=== PATIENT | male | born 1940 | race Caucasian/White ===

== ENCOUNTER 2022-05-18 17:01 | Inpatient (IN) | payer MEDICARE, SELFPAY ==
--- NOTE | 2022-05-18 17:06 | PC.NURSE ---
patient arrived by stretcher from [facility]
--- NOTE | 2022-05-18 17:07 | PC.NURSE ---
Pt arrived to floor @ 1703 via EMS.
[2022-05-18 17:13] VITALS: BP 126/59; PULSE 42; RESP 16; TEMP 36.4; O2SAT 93; BMI 31.6
[2022-05-18 17:15] VITALS: PULSE 73
[2022-05-18 20:00] VITALS: BP 106/54; PULSE 38; PULSE 40; RESP 16; TEMP 36.5; O2SAT 95
--- NOTE | 2022-05-18 20:35 | PC.NURSE ---
Did med req from list from [facility]. Called and spoke with Dr. Mcneil licensed tax consultant for Dr. Stone when pt arrived and he reordered protonix gtt, prn tylenol, and to make pt NPO. ED also notified to make Dr. Stone aware of pt's arrival and need for further orders, addison was going to make him aware. Bed safety on. CB in reach. Pt was sinus kuldip on tele upon admission. BP stable.
[2022-05-18 22:24] LABS: Coronavirus 19, PCR Not Detected (NotDetected); Influenza A, PCR Not Detected (NotDetected); Influenza B, PCR Not Detected (NotDetected)
[2022-05-19] VITALS (9 sets, daily range): BP systolic 96–136; BP diastolic 59–77; PULSE 40–55; RESP 16–22; TEMP 36.4–36.8; O2SAT 93–97; BMI 31.3
--- NOTE | 2022-05-19 06:31 | PC.NURSE ---
Pt AOx4. No c/o voiced to staff. Pt HR has been 32-50 t/o shift. Pt remains asymptomatic. Call light within reach.
[2022-05-19 06:58] LABS: POC Glucose,Bedside 93 (70-110)
--- NOTE | 2022-05-19 07:30 | EXP.PHA.VTE ---
[facility] Pharmacy VTE Monitoring Patient Demographics Patient Allergies No Known Allergies Allergy (Verified 05/18/22 19:53) Height: 1.8 m Weight: 101.469 kg VTE Risk VTE Score: 3 VTE Risk Level: Low Risk Clinical Trial Participant: No Prophylaxis VTE Prophylaxis Ordered?: Yes Types of VTE Prophylaxis: TEDS Knee High
[2022-05-19 09:32] LABS: Basophils % 0.2 % (0.1-2.0); Eosinophils # 0.3 K/mm3 (0.0-0.4); Eosinophils % 4.7 % (0.1-12.0); Hematocrit 28.2 % (42.0-52.0); Hemoglobin 8.7 g/dL (14.1-18.0); Lymphocytes # 1.9 K/mm3 (0.7-4.5); Lymphocytes % 30.7 % (10-50); Mean Corpuscular HGB Conc 30.7 g/dL (31.8-35.4); Mean Corpuscular Hemoglobin 26.2 pg (27.0-31.2); Mean Corpuscular Volume 85.4 fl (80-94); Mean Platelet Volume 8.1 fl (7.4-10.4); Monocytes # 0.4 K/mm3 (0.1-1.0); Monocytes % 5.8 % (1.7-9.3); Neutrophils # 3.6 K/mm3 (1.8-7.8); Neutrophils % 58.7 % (37.0-80.0); Platelet Count 235 K/mm3 (142-424); White Blood Count 6.1 K/mm3 (4.8-10.8)
--- NOTE | 2022-05-19 10:15 | PC.NURSE ---
Rounded on pt, cleaned and straightened lillie. Pt is npo for possible procedure. No needs voiced at this time.
--- NOTE | 2022-05-19 10:50 | EXP.CARD.CON ---
History of Present Illness History of Present Illness Consult date: 05/19/22 Requesting physician: José Miguel Hines Consult reason: shortness of breath Chief complaint: weakness, SOA, diaphoresis History of present illness: This is a 81-year-old gentleman who presented to the emergency department at [facility] with complaints of weakness, shortness of breath and diaphoresis. The patient states that he was not feeling well and went into the emergency department. He was found to be in a junctional rhythm with a heart rate in the 40s. Dr. Palacio was contacted and the patient was transferred here to [facility]. This morning he states he is feeling much better and really denies any complaints of weakness shortness of breath or diaphoresis. However, he has not been able to get up out of the bed due to his bradycardia. His heart rate was anywhere from 30 bpm to 50s overnight last night. He denies any chest pain or pressure. He denies any fever, chills, nausea, vomiting, diarrhea, PND or orthopnea. The patient does report having some blood in his stool for the last month as well. He is also anemic with a hemoglobin of 8.7. He has had no work-up for this blood in his stool. He does have a history of paroxysmal atrial fibrillation and he is on Xarelto for anticoagulation which is currently being held. The patient does have a history of renal cell carcinoma with right nephrectomy approximately a year ago with no history of chemo or radiation. Review of Systems Review of Systems Review of systems:: pertinent systems reviewed and negative unless documented below Constitutional Constitutional: Reports system reviewed and no additional complaints, except as documented, Reports fatigue, Reports lethargy and Reports weakness Eyes Eyes: Reports system reviewed and no additional complaints, except as documented ENT Ears, Nose, Mouth, and Throat: Reports system reviewed and no additional complaints, except as documented *Cardiovascular Cardiovascular: Reports system reviewed and no additional complaints, except as documented, Denies chest pain, Reports diaphoresis, Reports dyspnea and Reports dyspnea on exertion *Respiratory Respiratory: Reports system reviewed and no additional complaints, except as documented, Reports dyspnea and Reports dyspnea on exertion *Gastrointestinal Gastrointestinal: Reports system reviewed and no additional complaints, except as documented and Reports change in stool character (Blood in stool) *Genitourinary Genitourinary: Reports system reviewed and no additional complaints, except as documented *Musculoskeletal Musculoskeletal: Reports system reviewed and no additional complaints, except as documented Integumentary/Breasts Skin/Breast: Reports system reviewed and no additional complaints, except as documented *Neurologic Neurologic: Reports system reviewed and no additional complaints, except as documented and Reports weakness Psychiatric Psychiatric: Reports system reviewed and no additional complaints, except as documented Endocrine Endocrine: Reports system reviewed and no additional complaints, except as documented and Reports fatigue Hematologic/Lymphatic Hematologic/Lymphatic: Reports system reviewed and no additional complaints, except as documented Allergic/Immunologic Allergic/Immunologic: Reports system reviewed and no additional complaints, except as documented Exam Data for Last 24 hours Vital signs and Labs for Last 24 Hours: Temp Pulse Resp BP Pulse Ox 98.2 F 55 L 16 114/61 95 05/19/22 08:00 05/19/22 08:00 05/19/22 08:00 05/19/22 08:00 05/19/22 08:00 Laboratory Results - last 24 hr 05/18/22 22:12: SARS-CoV-2 (PCR) Not detected, Influenza A Untype (PCR) Not detected, Influenza Type B (PCR) Not detected 05/19/22 06:24: POC Glucose 93 05/19/22 09:15: WBC 6.1, RBC 3.30 L, Hgb 8.7 L, Hct 28.2 L, MCV 85.4, MCH 26.2 L, MCHC 30.7 L, RDW 17.0, Plt Count 235, MPV 8.1, Neut % (Auto) 58.7
[2022-05-19 11:27] LABS: POC Glucose,Bedside 115 (70-110)
--- NOTE | 2022-05-19 11:50 | EXP.SURG.CON ---
History of Present Illness *Admission Date: 05/19/22 *Reason for consult:: GI blood loss for 1 month *History of present illness: Patient is a 81-year-old who had presented to [facility] complaints of weakness, shortness of breath, diaphoresis. He stated that he was not feeling well upon presentation to the emergency department. He was noted to have a junctional rhythm with a heart rate in the 40s. Dr. Palacio was contacted and the patient was therefore transferred and admitted to [facility]. Patient has been weak and unable to get out of bed due to his bradycardia. Patient has some anemia with a hemoglobin of 8.7. He reported some blood in his stool for the past month characterized as dark melenic stool. Patient is on Xarelto for history of paroxysmal atrial fibrillation. Of note, the patient has a history of renal cell carcinoma has previous right nephrectomy approximately a year ago. Surgical consultation was obtained. His primary care provider is Dr. Acevedo. Patient has never had prior colonoscopy. No history of ulcer disease. Previously refused colonoscopy. [facility] Medical History (Updated 05/19/22 @ 10:56 by Lauren Urrutia APRN) Atrial fibrillation Cancer of kidney Cholecystectomy planned Diabetes mellitus, type 2 Gallbladder disease Hernia Hypertension Review of Systems Constitutional Constitutional: Reports weakness *Neurologic Neurologic: Reports system reviewed and no additional complaints, except as documented and Reports weakness Meds Home Medications and Allergies Home Medications Medication Instructions Recorded Confirmed Type allopurinol 100 mg tablet 100 mg PO DAILY gout 05/18/22 05/18/22 History amlodipine 5 mg tablet 5 mg PO DAILY blood pressure 05/18/22 05/18/22 History carvedilol 6.25 mg tablet 6.25 mg PO BID blood pressure 05/18/22 05/18/22 History cholecalciferol (vitamin D3) 25 25 mcg PO DAILY supplement 05/18/22 05/18/22 History mcg (1,000 unit) tablet (Vitamin D3) glimepiride 4 mg tablet 4 mg PO DAILY Diabetes 05/18/22 05/18/22 History lisinopril 20 mg tablet 20 mg PO DAILY blood pressure 05/18/22 05/18/22 History metformin 500 mg tablet 500 mg PO DAILY diabetes 05/18/22 05/18/22 History rivaroxaban 20 mg tablet (Xarelto) 20 mg PO QPMWITHMEAL Blood thinner 05/18/22 05/19/22 History simvastatin 20 mg tablet 20 mg PO HS Cholesterol 05/18/22 05/19/22 History tamsulosin 0.4 mg capsule 0.4 mg PO HS prostate 05/18/22 05/19/22 History New Prescriptions to Start Prescriptions: Allergies Allergy/AdvReac Type Severity Reaction Status Date / Time No Known Allergies Allergy Verified 05/18/22 19:53 Exam (Inpt) Vital signs and Labs for Last 24 Hours: Temp Pulse Resp BP Pulse Ox 98.1 F 50 L 17 126/73 97 05/19/22 11:13 05/19/22 11:13 05/19/22 11:13 05/19/22 11:13 05/19/22 11:13 Laboratory Results - last 24 hr 05/18/22 22:12: SARS-CoV-2 (PCR) Not detected, Influenza A Untype (PCR) Not detected, Influenza Type B (PCR) Not detected 05/19/22 06:24: POC Glucose 93 05/19/22 09:15: WBC 6.1, RBC 3.30 L, Hgb 8.7 L, Hct 28.2 L, MCV 85.4, MCH 26.2 L, MCHC 30.7 L, RDW 17.0, Plt Count 235, MPV 8.1, Neut % (Auto) 58.7, Lymph % (Auto) 30.7, [place] % (Auto) 5.8, Eos % (Auto) 4.7, Baso % (Auto) 0.2, Neut # (Auto) 3.6, Lymph # (Auto) 1.9, [place] # (Auto) 0.4, Eos # (Auto) 0.3, Baso # (Auto) 0.0 05/19/22 11:11: POC Glucose 115 H I & O for Labs for Last 24 Hours: Intake & Output 05/16/22 05/17/22 05/18/22 05/19/22 11:59 11:59 11:59 11:59 Intake Total 122 / 122 Output Total 2024 Balance -1903 / -1902 Weight 223 lb 11.2 oz GI: soft and tenderness Results Labs Result Diagrams: 05/19/22 09:15 05/19/22 09:15 Labs: Abnormal lab results 05/19/22 05/19/22 Range/Units 09:15 11:11 RBC 3.30 L (4.60-6.20) M/mm3 Hgb 8.7 L (14.1-18.0) g/dL Hct 28.2 L (42.0-52.0) % MCH 26.2 L
[2022-05-19 12:02] LABS: Anion Gap 12.4 mEq/L (5-15); Blood Urea Nitrogen 31 mg/dl (9-20); Calcium 9.1 mg/dl (8.4-10.2); Carbon Dioxide 22 mmol/L (22.0-30.0); Chloride 110 mmol/L (98-107); Creatinine Clearance Estimated 61 mL/min (50-200); Estimated Glomerular Filt Rate 49 ml/min (>60); GFR (African American) 59 ML/MIN (>60); Glucose 117 mg/dl (74-100); Potassium 5.4 mmoL/L (3.5-5.1); Sodium 139 mmol/L (136-145)
--- NOTE | 2022-05-19 12:12 | ECG_ITS ---
APPROVED REPORT Exam: Resting ECG HR:50 bpm ECG Measurements Heart Rate 50 AXES AR 235 P 47 QRSd 101 QRS 59 QT 450 T 70 QTc 424 Conclusion SINUS BRADYCARDIA WITH FIRST DEGREE AV BLOCK ABNORMAL ECG UNCONFIRMED REPORT Electronically signed by : Jim Mcneil MD 05/21/2022 08:07:44
[2022-05-19 12:14] LABS: Troponin I < 0.01 ng/ml (0.00-0.034)
--- NOTE | 2022-05-19 12:48 | EXP.HP ---
History of Present Illness *Admission Date: 05/19/22 *History of present illness: Patient is a 81-year-old who had presented to [facility] complaints of weakness, shortness of breath, diaphoresis. He stated that he was not feeling well upon presentation to the emergency department. He was noted to have a junctional rhythm with a heart rate in the 40s. Dr. Palacio was contacted and the patient was therefore transferred and admitted to [facility]. Patient has been weak and unable to get out of bed due to his bradycardia. Patient has some anemia with a hemoglobin of 8.7. He reported some blood in his stool for the past month. Patient is on Xarelto for history of paroxysmal atrial fibrillation. Of note, the patient has a history of renal cell carcinoma has previous right nephrectomy approximately a year ago. Surgical consultation was obtained. [facility] Medical History (Updated 05/20/22 @ 10:21 by Lauren Urrutia APRN) Atrial fibrillation Cancer of kidney Cholecystectomy planned Diabetes mellitus, type 2 Gallbladder disease Hernia Hypertension Social History (Updated 05/20/22 @ 08:59 by Earl Camilo CRNA) Smoking Status: Never smoker alcohol intake: current substance use type: denies use current occupational status: employed Travel in the last 8 weeks: Inside the [place] Review of Systems Constitutional Constitutional: Reports weakness Eyes Eyes: Denies change in vision ENT Ears, Nose, Mouth, and Throat: Reports system reviewed and no additional complaints, except as documented *Cardiovascular Cardiovascular: Reports system reviewed and no additional complaints, except as documented, Reports irregular heart rhythm, Reports lightheadedness and Reports slow heart rate *Respiratory Respiratory: Reports system reviewed and no additional complaints, except as documented *Gastrointestinal Gastrointestinal: Denies abdominal pain *Genitourinary Genitourinary: Reports system reviewed and no additional complaints, except as documented *Musculoskeletal Musculoskeletal: Reports system reviewed and no additional complaints, except as documented Integumentary/Breasts Skin/Breast: Reports system reviewed and no additional complaints, except as documented *Neurologic Neurologic: Reports system reviewed and no additional complaints, except as documented and Reports weakness Psychiatric Psychiatric: Reports system reviewed and no additional complaints, except as documented Endocrine Endocrine: Reports system reviewed and no additional complaints, except as documented Hematologic/Lymphatic Hematologic/Lymphatic: Reports system reviewed and no additional complaints, except as documented Allergic/Immunologic Allergic/Immunologic: Reports system reviewed and no additional complaints, except as documented Meds Home Medications and Allergies Home Medications Medication Instructions Recorded Confirmed Type allopurinol 100 mg tablet 100 mg PO DAILY gout 05/18/22 05/18/22 History amlodipine 5 mg tablet 5 mg PO DAILY blood pressure 05/18/22 05/18/22 History carvedilol 6.25 mg tablet 6.25 mg PO BID blood pressure 05/18/22 05/18/22 History cholecalciferol (vitamin D3) 25 25 mcg PO DAILY supplement 05/18/22 05/18/22 History mcg (1,000 unit) tablet (Vitamin D3) glimepiride 4 mg tablet 4 mg PO DAILY Diabetes 05/18/22 05/18/22 History lisinopril 20 mg tablet 20 mg PO DAILY blood pressure 05/18/22 05/18/22 History metformin 500 mg tablet 500 mg PO DAILY diabetes 05/18/22 05/18/22 History rivaroxaban 20 mg tablet (Xarelto) 20 mg PO QPMWITHMEAL Blood thinner 05/18/22 05/19/22 History simvastatin 20 mg tablet 20 mg PO HS Cholesterol 05/18/22 05/19/22 History tamsulosin 0.4 mg capsule 0.4 mg PO HS prostate 05/18/22 05/19/22 History New Prescriptions to Start Prescriptions: Allergies Allergy/AdvReac Type Severity Reaction Status Date / Time No Known Allergies Allergy Verified 05/18/22 19:53
--- NOTE | 2022-05-19 13:44 | PC.NURSE ---
patient sitting up in bed. stated he just finished his clear liquid tray for lunch. no concerns or questions in regards to plan of care or planned procedures. did encourage patient to ring out for assistance to the bathroom and we would be happy to help him. he had some worries about walking ot the bathroom once his bowel prep was started.
[2022-05-19 16:53] LABS: POC Glucose,Bedside 122 (70-110)
--- NOTE | 2022-05-19 18:35 | PC.NURSE ---
Patient scheduled for egd, colonoscopy and pacemaker in am. Bowel Prep started after clear liquid diet initiated. Patient having formed medium colored brown stool. VS stable and heart rate in 50's during shift. No other complaints noted.
[2022-05-19 19:57] LABS: POC Glucose,Bedside 121 (70-110)
--- NOTE | 2022-05-19 20:38 | PC.NURSE ---
pt used the bathroom by himself, NA on urine output.
[2022-05-20] VITALS (11 sets, daily range): BP systolic 95–138; BP diastolic 60–75; PULSE 50–70; RESP 16–20; TEMP 35.8–36.5; O2SAT 89–98; BMI 29.7
--- NOTE | 2022-05-20 | IR_ITS ---
APPROVED REPORT Patient Location: Outpatient Panelboard Assembler: BILL Olivares RT (R) PROCEDURES 1. Pocket formation for Permanent Pacemaker Placement. 2. Placement of an atrial sensing and pacing coil into the right atrial appendage. 3. Placement of a ventricular sensing and pacing coil in the right ventricular apex. 4. Permanent Pacemaker Placement. INDICATION Symptomatic bradycardia Informed consent was obtained prior to the procedure. COMPLICATIONS None Estimated Blood Loss: Less than 10 ML TECHNIQUE 1% Lidocaine with epinephrine used to anesthetized the left anterior aspect of the chest. Scalpel was used to make the initial cutaneous incision while electrocautery was used to dissect down tinto the fascia. The fascia was lifted off the pectoralis muscle and digitally manipulated creating a pocket for the pacemaker. The patient was then placed in Trendelenburg position and the subclavian vein was accessed twice via the Selinger technique, there are two wires in the vein. A 6 Iraqi sheath was placed under fluoroscopic guidance into the subclavian vein over one of the wires while keeping the other wire in place within the subclavian vein. The dilator was removed from the sheath. Using fluoroscopic guidance, the ventricular lead was placed into the right ventricular apex, screwed and secured into place. Electronic interrogation proved acceptable thresholds and voltage within the lead. Using 3-0 silk, the ventricular lead was then secured into place. Lead was secured to the facia using the 3-0 silk. Following this, the sheath was pealed away. An additional 6 Iraqi fresh sheath and dilator was placed over the existing wire. Using fluoroscopic guidance, the atrial lead was the placed into the right atrial appendage and screwed and secured in place. Electrical interrogation demonstrated acceptable thresholds and voltage number. The atrial lead was then secured into place using 3-0 silk. 1 gram of Ancef was used to flush the pocket. Following the pacemaker generator being secured to the fascia and in place, Monocryl was used to close the subcutaneous layers while reg were used to close the cutaneous layer. A pressure dressing was placed and the patient was transferred to the postop holding area in stable condition for postoperative care. INTERROGATION Generator Model number: OnePINBAZAN DR, L311 Generator Serial number: [id number] Atrial lead model number: INGEVITY+ 52CM, 7841 Atrial lead serial number: [id number] P-wave: 4.0mV Impedence: 527 ohms Threshold: 1.5V@0.4ms Current: 2.8mA Right Ventricular lead model number: ZOË+ 59CM, 7842 Right Ventricular lead serial number: [id number] R-wave: 4.0mV Impedence: 665 ohms Threshold: 0.4V@0.4ms Current: 0.6mA Pacing Parameters: Mode: DDDR Base/Max Track:60 ppm / 130 ppm No diaphragmatic stimulation at 10 volts. IMPRESSION 1. Successful pocket formation for Permanent Pacemaker Placement. 2. Successful placement of an atrial sensing and pacing coil into the right atrial appendage. 3. Successful placement of a ventricular sensing and pacing coil in the right ventricular apex. 4. Successful permanent Pacemaker Placement. PLAN 1. Postop wound care. Follow up office visit. Electronically signed by : Ion Palacio MD 05/20/2022 13:02:32
--- NOTE | 2022-05-20 05:24 | PC.NURSE ---
Patient a&ox4. Patient ambulates independently to the restroom. Patient scheduled for egd, colonoscopy, and pacemaker this am. Patient having water brownish colored stools after bowl prep. Heart rate has been in the 50's throughout night. Patient bathed and ready for OR this AM no concerns noted.
[2022-05-20 05:58] LABS: POC Glucose,Bedside 101 (70-110)
--- NOTE | 2022-05-20 06:18 | PC.NURSE ---
Patient off floor with pre op nurse.
--- NOTE | 2022-05-20 06:19 | PC.NURSE ---
PT OFF FLOOR VIA BED W/ OR STAFF @ [id number]
[2022-05-20 06:33] LABS: Basophils % 0.4 % (0.1-2.0); Eosinophils # 0.3 K/mm3 (0.0-0.4); Eosinophils % 4.5 % (0.1-12.0); Hematocrit 28.6 % (42.0-52.0); Hemoglobin 8.7 g/dL (14.1-18.0); Lymphocytes # 1.7 K/mm3 (0.7-4.5); Mean Corpuscular HGB Conc 30.2 g/dL (31.8-35.4); Mean Corpuscular Hemoglobin 26.1 pg (27.0-31.2); Mean Corpuscular Volume 86.4 fl (80-94); Mean Platelet Volume 8.6 fl (7.4-10.4); Monocytes # 0.4 K/mm3 (0.1-1.0); Monocytes % 7.3 % (1.7-9.3); Neutrophils # 3.3 K/mm3 (1.8-7.8); Neutrophils % 57.9 % (37.0-80.0); Platelet Count 237 K/mm3 (142-424); Red Blood Count 3.32 M/mm3 (4.60-6.20); Red Cell Distribution Width 17.2 % (11.5-17.5); White Blood Count 5.7 K/mm3 (4.8-10.8)
[2022-05-20 07:20] LABS: Alanine Aminotransferase 28 U/L (12-78); Albumin Level 3.7 g/dl (3.5-5.0); Alkaline Phosphatase 72 U/L (38-126); Anion Gap 13.6 mEq/L (5-15); Aspartate Amino Transferase 28 U/L (17-59); Bilirubin,Direct 0.3 mg/dl (0.0-0.4); Bilirubin,Total 1.3 mg/dl (0.2-1.3); Blood Urea Nitrogen 22 mg/dl (9-20); Calcium 8.7 mg/dl (8.4-10.2); Carbon Dioxide 24 mmol/L (22.0-30.0); Chloride 109 mmol/L (98-107); Chol/HDL Ratio 2.6 (1-3.5); Cholesterol 81 mg/dl (140-200); Creatinine Clearance Estimated 54 mL/min (50-200); Estimated Glomerular Filt Rate 45 ml/min (>60); GFR (African American) 55 ML/MIN (>60); Glucose 99 mg/dl (74-100); HDL Cholesterol 31 mg/dl (40-60); Potassium 4.6 mmoL/L (3.5-5.1); Sodium 142 mmol/L (136-145); Total Protein,Serum 6.3 g/dl (6.3-8.2); Triglycerides 94 mg/dl (30-150); VLDL Cholesterol 19 mg/dL (0-40)
--- NOTE | 2022-05-20 07:44 | HMH.SCOPE ---
Procedure: Date: 05/20/22 Patient Date of :: 1940 Procedure Performed:: Esophagogastroduodenoscopy with biopsy Colonoscopy Indications:: Patient is a 81-year-old male who was admitted with symptomatic bradycardia. Consideration is being given for transvenous pacemaker. However, patient gives history of melena and anemia. Surgery was asked to perform endoscopy and colonoscopy to evaluate for any potential GI blood loss source. Performing Provider:: Didier Cordova MD Referring Provider:: Candido Acevedo Sedation:: MAC sedation Procedure:: Patient was taken to endoscopy procedure room. He was positioned in lateral decubitus position. Adequate intravenous sedation was achieved. Attention was first turned to upper endoscopy. Olympus endoscope was inserted via the oropharynx. Esophagus was cannulated. Overall esophagus appeared unremarkable. Gastroesophageal junction was encountered at approximately 45 cm from the incisors. Stomach was cannulated and insufflated. Retroflexion revealed a small hiatal hernia. There is some diffuse gastropathy, nonerosive. Pylorus was traversed. There was some focal duodenitis within the duodenal bulb which was biopsied. Remainder of the duodenum appeared unremarkable. Endoscope was withdrawn into the antrum and gastric antral mucosal biopsy was obtained for histopathologic analysis and H. pylori assessment. Given the fact that the patient has impending need for anticoagulation Hemoclip was deployed to ensure hemostasis. Stomach was desufflated and endoscope was withdrawn. Attention was then turned to colonoscopy. Variable stiffness Olympus colonoscope was inserted via the anus. With some difficulty due to significant redundancy and atonic nature of the sigmoid colon the colonoscope was ultimately advanced to the cecum. Ileocecal valve and appendiceal orifice were identified. Colonic preparation was fair to good. Decent visualization was achieved with thorough irrigation and suctioning. Colonoscope was slowly withdrawn through the colon with careful surveillance. There was no evidence of any polyps, masses, or diverticuli noted. Retroflexion within the rectum was performed which revealed some minor nonbleeding internal hemorrhoids. Colonoscope was withdrawn. Findings:: Gastroesophageal junction at 45 cm Small sliding hiatal hernia Diffuse gastropathy Mild duodenitis focally in the duodenal bulb Somewhat atonic redundant colon Recommendations:: May require small bowel evaluation as an outpatient for completeness for his anemia. May consider repeat colonoscopy in 5 years given the fact that this was initial screening colonoscopy and colonic preparation was slightly suboptimal. Complications:: Not immediately apparent Estimated blood obtained (mL): 2
--- NOTE | 2022-05-20 08:12 | PC.NURSE ---
Pt returned from OPS for EGD/colonoscopy, report received from CHANTAL Dang from OPS. Condition stable, pt is alert and verbal with clear speech, oriented x 4. Family at bedside.
--- NOTE | 2022-05-20 08:55 | PC.NURSE ---
Pt left floor for pacemaker placement via stretcher accompanied by 2 staff members. Condition stable at this time.
--- NOTE | 2022-05-20 08:55 | P.PN_ITS ---
[facility] Medical History (Updated 05/19/22 @ 13:13 by Lauren Urrutia APRN) Atrial fibrillation Cancer of kidney Cholecystectomy planned Diabetes mellitus, type 2 Gallbladder disease Hernia Hypertension Social History Smoking Status: Never smoker alcohol intake: current substance use type: denies use current occupational status: employed
--- NOTE | 2022-05-20 09:09 | XR_ITS ---
FINAL REPORT CLINICAL HISTORY: Confirm pacemaker/AID placement FINDINGS: There is a new left subclavian AICD pacemaker. The heart size is mildly enlarged. The mediastinum is normal. There are chronic changes in bilateral lungs. There are no pleural effusions. There is no pneumothorax. There is no osseous abnormality. IMPRESSION: No acute cardiopulmonary process. New left subclavian AICD pacemaker. No pneumothorax Reviewed, Interpreted and Dictated by Martin De Oliveira MD Transcribed by Bisi Vaughan Authenticated and [facility]
--- NOTE | 2022-05-20 09:49 | P.PN_ITS ---
[facility] Medical History (Updated 05/19/22 @ 13:13 by Lauren Urrutia APRN) Atrial fibrillation Cancer of kidney Cholecystectomy planned Diabetes mellitus, type 2 Gallbladder disease Hernia Hypertension Social History (Updated 05/20/22 @ 08:59 by Earl Camilo CRNA) Smoking Status: Never smoker alcohol intake: current substance use type: denies use current occupational status: employed Travel in the last 8 weeks: Inside the [facility]
--- NOTE | 2022-05-20 09:52 | EXP.ACUTE.PN ---
Subjective *Date: 05/20/22 *Time: 14:21 Interval history: doing ok - had gi procedures today and to have pacemaker placed today Medical Exam Vital signs and Labs for Last 24 Hours: Temp Pulse Resp BP Pulse Ox 96.5 F L 64 18 138/65 89 L 05/20/22 08:00 05/20/22 08:00 05/20/22 08:00 05/20/22 08:00 05/20/22 08:00 Laboratory Results - last 24 hr 05/19/22 09:15: Sodium 139, Potassium 5.4 H, Chloride 110 H, Carbon Dioxide 22, Anion Gap 12.4, BUN 31 H, Creatinine 1.40 H, Estimated Creat Clear 61, Estimated GFR 49 L, Est GFR ( Amer) 59, Glucose 117 H, Calcium 9.1, Troponin I < 0.01 05/19/22 11:11: POC Glucose 115 H 05/19/22 16:44: POC Glucose 122 H 05/19/22 19:50: POC Glucose 121 H 05/20/22 05:51: POC Glucose 101 05/20/22 06:15: WBC 5.7, RBC 3.32 L, Hgb 8.7 L, Hct 28.6 L, MCV 86.4, MCH 26.1 L, MCHC 30.2 L, RDW 17.2, Plt Count 237, MPV 8.6, Neut % (Auto) 57.9, Lymph % (Auto) 30.0, Dillon % (Auto) 7.3, Eos % (Auto) 4.5, Baso % (Auto) 0.4, Neut # (Auto) 3.3, Lymph # (Auto) 1.7, Dillon # (Auto) 0.4, Eos # (Auto) 0.3, Baso # (Auto) 0.0 05/20/22 06:15: Sodium 142, Potassium 4.6, Chloride 109 H, Carbon Dioxide 24, Anion Gap 13.6, BUN 22 H D, Creatinine 1.50 H, Estimated Creat Clear 54, Estimated GFR 45 L, Est GFR ( Amer) 55 L, Glucose 99, Calcium 8.7, Total Bilirubin 1.3, Direct Bilirubin 0.3, Conjugated Bilirubin 0.0, Indirect Bilirubin 1.0 H, Unconjugated Bilirubin 1.0, AST 28, ALT 28, Alkaline Phosphatase 72, Total Protein 6.3, Albumin 3.7, Triglycerides 94, Cholesterol 81 L, VLDL Cholesterol 19, HDL Cholesterol 31 L, Cholesterol/HDL Ratio 2.6 I & O for Labs for Last 24 Hours: Intake & Output 05/17/22 05/18/22 05/19/22 05/20/22 11:59 11:59 11:59 11:59 Intake Total 122 / 122 2071 Output Total 2024 1475 / 1475 Balance -1903 / -1903 597 / 597 Weight 223 lb 11.2 oz 212 lb 3.2 oz Head: atraumatic Eyes: as per HPI ENT: normal oropharynx Neck: trachea midline Respiratory: CTA bilaterally Cardiac: Reg Rate and Rhythm GI: soft Extremities: calf tenderness Skin: intact Neuro: Cranial Nerve 2-12 Intact Assessment and Plan Assessment and plan all Dx Plan of Treatment: Plan: 1. The patient presented to [facility] with shortness of breath, diaphoresis and weakness. The patient was found to be in a junctional rhythm with a heart rate in the 40s. This morning he is sinus bradycardia with a rate in the 50s. The patient will need to undergo permanent pacemaker placement secondary to his symptomatic bradycardia, junctional bradycardia and sick sinus syndrome. The patient is on a beta-serafin but given his paroxysmal atrial fibrillation he needs to remain on his beta-serafin. He was given glucagon yesterday and still remains bradycardic this morning. 2. Will get an echocardiogram to evaluate his LV function. If the patient has cardiomyopathy then he will need to have a biventricular pacemaker placed instead of just a dual-chamber pacemaker. We will determine which pacemaker needs to be implanted following his echocardiogram this morning. The patient's preliminary EF is greater than 55%. We will proceed with dual-chamber permanent pacemaker placement tomorrow 3. The patient will be n.p.o. after midnight in preparation for permanent pacemaker placement. 4. Patient has been educated the risk and benefits of proceeding with permanent pacemaker placement. Patient verbalized understanding is agreeable proceeding with the procedure. 5. The patient is anemic this morning with a hemoglobin of 8.7. He has been having blood in his stool for approximately 1 month. He is on Xarelto for anticoagulation. Will get a surgery consult due to this GI bleed. Dr. Palacio would like for the patient to have a colonoscopy on this admission to decide whether or not we should hold anticoagulation long-term or not and whether or not we need to initiate antiarrhythmics. 6. He does have paroxysmal atrial fibrillation. He
--- NOTE | 2022-05-20 10:10 | EXP.CARD.PN ---
Subjective Subjective Date: 05/20/22 Time: 09:30 Principal diagnosis: junctional rhythm, symptomatic bradycardia Interval history: This is a 81-year-old gentleman who presented to the emergency department at [facility] with complaints of weakness shortness of breath and diaphoresis. He was then transferred to [facility] and was found to be in a junctional rhythm with heart rate in the 40s. H&H is stable this morning and is now 8.7/28.6. He reported on admission that he had been having bloody stools for the last month. He underwent colonoscopy and an EGD this morning. Both were unremarkable. Dr. Cordova recommends that he has another colonoscopy in 5 years as this was the initial screening and small bowel evaluaiton. Potassium level has improved this morning and is now 4.6. He denies any chest pain or pressure this morning. He denies any fever, chills, nausea, vomiting, diarrhea, PND or orthopnea. Dr. Palacio will insert pacemaker today. Plans for outpatient cardiac catheterization next week. Exam Data for Last 24 hours Vital signs and Labs for Last 24 Hours: Temp Pulse Resp BP Pulse Ox 96.5 F L 64 18 138/65 89 L 05/20/22 08:00 05/20/22 08:00 05/20/22 08:00 05/20/22 08:00 05/20/22 08:00 Laboratory Results - last 24 hr 05/19/22 09:15: Sodium 139, Potassium 5.4 H, Chloride 110 H, Carbon Dioxide 22, Anion Gap 12.4, BUN 31 H, Creatinine 1.40 H, Estimated Creat Clear 61, Estimated GFR 49 L, Est GFR ( Amer) 59, Glucose 117 H, Calcium 9.1, Troponin I < 0.01 05/19/22 11:11: POC Glucose 115 H 05/19/22 16:44: POC Glucose 122 H 05/19/22 19:50: POC Glucose 121 H 05/20/22 05:51: POC Glucose 101 05/20/22 06:15: WBC 5.7, RBC 3.32 L, Hgb 8.7 L, Hct 28.6 L, MCV 86.4, MCH 26.1 L, MCHC 30.2 L, RDW 17.2, Plt Count 237, MPV 8.6, Neut % (Auto) 57.9, Lymph % (Auto) 30.0, Adams % (Auto) 7.3, Eos % (Auto) 4.5, Baso % (Auto) 0.4, Neut # (Auto) 3.3, Lymph # (Auto) 1.7, Adams # (Auto) 0.4, Eos # (Auto) 0.3, Baso # (Auto) 0.0 05/20/22 06:15: Sodium 142, Potassium 4.6, Chloride 109 H, Carbon Dioxide 24, Anion Gap 13.6, BUN 22 H D, Creatinine 1.50 H, Estimated Creat Clear 54, Estimated GFR 45 L, Est GFR ( Amer) 55 L, Glucose 99, Calcium 8.7, Total Bilirubin 1.3, Direct Bilirubin 0.3, Conjugated Bilirubin 0.0, Indirect Bilirubin 1.0 H, Unconjugated Bilirubin 1.0, AST 28, ALT 28, Alkaline Phosphatase 72, Total Protein 6.3, Albumin 3.7, Triglycerides 94, Cholesterol 81 L, VLDL Cholesterol 19, HDL Cholesterol 31 L, Cholesterol/HDL Ratio 2.6 I & O for Last 24 hours: Intake & Output 05/17/22 05/18/22 05/19/22 05/20/22 23:59 23:59 23:59 23:59 Intake Total 0 / 0 1582 / 1582 612 / 612 Output Total 100 / 300 3400 / 3400 0 / 0 Balance -100 / -300 -1818 / -1818 612 / 612 Weight 227 lb 2 oz 223 lb 10.896 oz 212 lb 3.2 oz Constitutional Constitutional: no acute distress and obese *Routine HEENT Exam Head: Present normocephalic and atraumatic ENT: Present mucous membranes moist *Routine Neck Exam Neck: Present supple, full ROM and normal carotid upstroke; Absent JVD, carotid bruit or lymphadenopathy *Routine Respiratory Exam Respiratory: Present CTA bilaterally, normal respiratory effort, able to speak in complete sentences and symmetric chest movement *Routine Cardiovascular Exam Cardiovascular: Present RRR, Normal S1 and Normal S2; Absent murmur or gallop *Routine Abdominal Exam Abdominal: Present soft and normoactive bowel sounds; Absent tenderness or distended *Routine Extremities Exam Extremities: Present full ROM, pulses intact and normal capillary refill; Absent cyanosis, clubbing or edema *Routine Skin Exam Skin: Present intact and warm; Absent erythema *Routine Neurological Exam Neurological: Present alert, oriented X3 and CN II-XII intact; Absent sensory deficit or motor deficit Routine Psychiatric Exam Psychiatric: Present normal affect Progress Note: A&P Assessment and plan (1) Junctional bradycardia
--- NOTE | 2022-05-20 10:58 | SUR.PHASEII ---
per MD verbal order pt to have f/u appointment on Monday along with f/u lab work. F/u appointment made for May 23 at 0830 and a copy of lab order form in patients chart. A PEPE Urrutia to change medication orders per MD. Update on POC given to CHANTAL Kenney.
--- NOTE | 2022-05-20 11:16 | SUR.PHASEII ---
radiology at bedside to perform xray.
[2022-05-20 12:53] LABS: Reticulocyte % (Auto) 3.5 % (0.9-3.2)
[2022-05-20 13:41] LABS: Iron 27 ug/dL (49-181)
[2022-05-20 13:51] LABS: Total Iron Binding Capacity 311 ug/dL (261-462)
[2022-05-20 14:18] LABS: Ferritin 15.4 ng/ml (17.9-464)
--- NOTE | 2022-05-20 14:21 | EXP.DC.SUM ---
General Admission date:: 05/18/22 Discharge date: 05/20/22 HPI HPI HPI: Patient is a 81-year-old who had presented to [facility] complaints of weakness, shortness of breath, diaphoresis. He stated that he was not feeling well upon presentation to the emergency department. He was noted to have a junctional rhythm with a heart rate in the 40s. Dr. Palacio was contacted and the patient was therefore transferred and admitted to [facility]. Patient has been weak and unable to get out of bed due to his bradycardia. Patient has some anemia with a hemoglobin of 8.7. He reported some blood in his stool for the past month characterized as dark melenic stool. Patient is on Xarelto for history of paroxysmal atrial fibrillation. Of note, the patient has a history of renal cell carcinoma has previous right nephrectomy approximately a year ago. Surgical consultation was obtained. His primary care provider is Dr. Acevedo. Patient has never had prior colonoscopy. No history of ulcer disease. Previously refused colonoscopy. Hospital Course Hospital Course Hospital Course: pt has did well- he was seen by marzena -s is a 81-year-old gentleman who presented to the emergency department at [facility] with complaints of weakness, shortness of breath and diaphoresis.? The patient states that he was not feeling well and went into the emergency department.? He was found to be in a junctional rhythm with a heart rate in the 40s.? Dr. Palacio was contacted and the patient was transferred here to [facility].? This morning he states he is feeling much better and really denies any complaints of weakness shortness of breath or diaphoresis.? However, he has not been able to get up out of the bed due to his bradycardia.? His heart rate was anywhere from 30 bpm to 50s overnight last night.? He denies any chest pain or pressure.? He denies any fever, chills, nausea, vomiting, diarrhea, PND or orthopnea.? The patient does report having some blood in his stool for the last month as well.? He is also anemic with a hemoglobin of 8.7.? He has had no work-up for this blood in his stool.? He does have a history of paroxysmal atrial fibrillation and he is on Xarelto for anticoagulation which is currently being held.? The patient does have a history of renal cell carcinoma with right nephrectomy approximately a year ago with no history of chemo or radiation.?i junctional rhythm, symptomatic bradycardia Interval history: This is a 81-year-old gentleman who presented to the emergency department at [facility] with complaints of weakness shortness of breath and diaphoresis.? He was then transferred to [facility] and was found to be in a junctional rhythm with heart rate in the 40s.? H&H is stable this morning and is now 8.7/28.6.? He reported on admission that he had been having bloody stools for the last month.? He underwent colonoscopy and an EGD this morning.? Both were unremarkable.? Dr. Cordova recommends that he has another colonoscopy in 5 years as this was the initial screening and small bowel evaluaiton.? Potassium level has improved this morning and is now 4.6.? He denies any chest pain or pressure this morning.? He denies any fever, chills, nausea, vomiting, diarrhea, PND or orthopnea.? Dr. Palacio will insert pacemaker today.? Plans for outpatient cardiac catheterization next week patient is status post permanent pacemaker placement.? He is currently a pacing. The patient is stable for discharge home today from a cardiac standpoint since he has his pacemaker in place. The patient will follow-up in cardiology clinic on Monday to evaluate his pacemaker site and to be set up for an outpatient left cardiac catheterization secondary to the abnormal EKG. The patient will need to go home on Coreg 12.5 mg p.o. twice daily, amiodarone 200 mg p.o. twice daily, simvastatin 20 mg nightly.? We will hold the amlodipine and
[2022-05-20 14:42] LABS: Vitamin B12 296 pg/mL (239-931)
[2022-05-20 14:52] LABS: Folate 7.78 ng/mL
--- NOTE | 2022-05-20 15:03 | PC.NURSE ---
rounded on patient. family states they are awaiting for discharge. cardiology had told them he could go home. primary nurse was calling to check with attending. no other questions or concerns at this time. encouraged them to ring out with any needs.
--- NOTE | 2022-05-20 15:55 | PC.NURSE ---
Pt left floor at this time via W/C accompanied by RN. Condition stable at DC.
[2022-05-21 09:35] LABS: Direct LDL Cholesterol 32 mg/dL (100-129)
[2022-05-21 10:43] LABS: Transferrin 284 mg/dL (177-329)
[2022-05-23 16:34] LABS: Albumin 3.5 g/dL (2.9-4.4); Alpha-1-Globulin 0.3 g/dL (0.0-0.4); Alpha-2-Globulin 0.6 g/dL (0.4-1.0); Gamma Globulin 0.8 g/dL (0.4-1.8); Protein, Total 6.1 g/dL (6.0-8.5)
== END 2022-05-20 15:55 | disposition home or self-care (01) | DRG 242 ==
PROVIDERS: Family Medicine; Internal Medicine; Nurse Practitioner Family; Surgery; Admitting Provider Emergency Medicine; Visit Provider Emergency Medicine
PROC: 0DJ08ZZ Inspection of Upper Intestinal Tract, Via Natural or Artificial Opening Endoscopic (ICD-10-PCS; CPT 43235; principal; 2022-05-20 06:30)
PROC: 0JH606Z Insertion of Pacemaker, Dual Chamber into Chest Subcutaneous Tissue and Fascia, Open Approach (ICD-10-PCS; principal; 2022-05-20 08:00)
DX: I49.5 Sick sinus syndrome (principal); K29.81 Duodenitis with bleeding; E11.9 Type 2 diabetes mellitus without complications; I10 Essential (primary) hypertension; Z79.4 Long term (current) use of insulin; Z79.01 Long term (current) use of anticoagulants; I48.0 Paroxysmal atrial fibrillation; K44.9 Diaphragmatic hernia without obstruction or gangrene; Z85.528 Personal history of other malignant neoplasm of kidney
CPT/HCPCS: 43239; 45378; 33208; 36415; 71045; 80048; 80061; 80076; 82607; 82728; 82746; 82962; 83540; 83550; 84155; 84165; 84466; 84484; 85025; 85044; 88305; 93005; 93306; C1785; C1898; C9803; U0003; U0005

== ENCOUNTER → 2022-05-25 08:17 | Outpatient (CLI) | payer MEDICARE, SELFPAY ==
[2022-05-25 10:01] LABS: Basophils % 0.4 % (0.1-2.0); Eosinophils # 0.4 K/mm3 (0.0-0.4); Eosinophils % 6.5 % (0.1-12.0); Hematocrit 27.7 % (42.0-52.0); Hemoglobin 8.2 g/dL (14.1-18.0); Lymphocytes # 1.6 K/mm3 (0.7-4.5); Lymphocytes % 24.2 % (10-50); Mean Corpuscular HGB Conc 29.8 g/dL (31.8-35.4); Mean Corpuscular Hemoglobin 25.9 pg (27.0-31.2); Mean Platelet Volume 8.1 fl (7.4-10.4); Monocytes # 0.5 K/mm3 (0.1-1.0); Monocytes % 6.9 % (1.7-9.3); Neutrophils # 4.1 K/mm3 (1.8-7.8); Platelet Count 221 K/mm3 (142-424); Red Blood Count 3.18 M/mm3 (4.60-6.20); Red Cell Distribution Width 16.7 % (11.5-17.5); White Blood Count 6.6 K/mm3 (4.8-10.8)
[2022-05-25 10:16] LABS: Chloride 112 mmol/L (98-107)
[2022-05-25 10:17] LABS: Potassium 5.4 mmoL/L (3.5-5.1); Sodium 143 mmol/L (136-145)
[2022-05-25 10:19] LABS: Blood Urea Nitrogen 35 mg/dl (9-20); Estimated Glomerular Filt Rate 32 ml/min (>60); GFR (African American) 39 ML/MIN (>60)
[2022-05-25 10:20] LABS: Anion Gap 14.4 mEq/L (5-15); Calcium 8.8 mg/dl (8.4-10.2); Carbon Dioxide 22 mmol/L (22.0-30.0); Glucose 112 mg/dl (74-100)
== END ==
PROVIDERS: PCP Emergency Medicine; Visit Provider Emergency Medicine
DX: R06.02 Shortness of breath (principal)
CPT/HCPCS: 36415; 80048; 85025

== ENCOUNTER → 2022-05-27 06:56 | Outpatient (CLI) | payer MEDICARE, SELFPAY ==
--- NOTE | 2022-05-27 | CA_ITS ---
APPROVED REPORT Exam: Pharmacologic Technologist: Marisela De La Garza, Ht: 5 ft 11 in Wt: 225 lbs BSA: 2.22 m2 HR: 63 bpm BP: 127/70 mmHg Medical History Medical History: Diabetes, HTN, , Smoking Medications: Amiodarone,,,,, Simvastatin,,,,, Metformin,,,,, Allopurinol,,,,, Carvedilol,,,,, Vit D3,,,,, GlimepERIDE,,,,, Cardiac Risk Factors: HTN, Diabetes (non-insulin), Smoking Stress Test Details Test: LEXISCAN HR Resting HR: 60 bpm Max Heart Rate (APMHR): 141.216998 bpm Max HR Achieved: 61 bpm Target HR (85% APMHR): 119.399558 bpm % of APMHR: 43.26 Recovery HR: 60 bpm BP Resting BP: 127/70 mmHg Max BP: 127/70 mmHg Recovery BP: 111.0/59.0 mmHg ECG Clinical Exercise duration: 04:00 min Highest Stage Achieved: Exercise capacity: 1.0 METs Stress ECG Conclusion During lexiscan pt experinced no symptoms. No arrhythmias noted. <1.5mm ST changes. Test Summary REST . . . . . . . Sitting REST 09:34 . . 60 . 127/ 70 . . Stage 1 01:00 . . 60 . . . . Stage 2 01:00 . . 60 . 106/ 55 . . Stage 3 01:00 . . 60 . 113/ 56 . . Stage 4 01:00 . . 60 . 115/ 58 . Stop exercise at 04:00 RECOVERY 01:00 . . 60 . . . . RECOVERY 01:52 . . 60 . 117/ 59 . . Electronically signed by : Jorge Glez MD 05/27/2022 10:04:44
--- NOTE | 2022-05-27 07:58 | NM_ITS ---
APPROVED REPORT Exam: Nuclear Stress Test Indication: short of breath Patient Location: Outpatient Stress Tech: Marisela De La Garza ME Tech:Ledy Monsivais CASEYLuciano RT(R)(N) Ht: 5 ft 10 in Wt: 225 lbs HR: 60 bpm BP: 127/70 mmHg BSA: 2.19 m2 TID: 1.46 BMI: 32.2 History: short of breath Procedure: Patient received a 0.4 mg of intravenous Lexiscan, resting heart rate 60 bpm, resting blood pressure 127/70 mmHg, with Lexiscan maximum heart rate achived was 61 bpm which is Less than 85 % of the maximum predicted heart rate and blood pressure was 127/70 mmHg. With Lexiscan, patient denied any complaint of chest pain. the patient was unable to lay on his belly for prone images. Electrocardiogram Resting electrocardiogram shows sinus rhythm right ventricular conduction delay nonspecific ST-T changes, with Lexiscan less than 1.[address] segment depression noted from the baseline EKG. The EKG portion of the Lexiscan is nondiagnostic. Cardiac Stress and Resting SPECT Images: Cardiac Stress and Resting SPECT images were obtained using technetium 99m Myoview 30.6 mCi stress and 10.42 mCi at rest. Gated SPECT analysis of segmental wall motion and calculation of the ejection fraction also done. Prone images were not obtained. Cardiac stress and rest SPECT images show partial reversible defect involving the anterior apical wall consistent with mixed ischemia and scar, computer derived ejection fraction is 62% with moderate anterior apical wall hypokinesis, right ventricle is normal size and contractility. Conclusion: 1. The EKG portion of the Lexiscan is nondiagnostic. 2. Scintigraphic evidence of mixed ischemia and scar involving the anterior apical wall, computer derived ejection fraction is 62% with segmental wall motion abnormality described above, right ventricle is normal size and contractility. 3. Abnormal Lexiscan Myoview study. Electronically signed by : Jorge Glez MD 05/27/2022 12:15:03
== END ==
PROVIDERS: PCP Family Medicine; Visit Provider Nurse Practitioner Family
DX: R94.31 Abnormal electrocardiogram [ECG] [EKG] (principal)
CPT/HCPCS: 78452; 93017; A9502; J2785

== ENCOUNTER → 2022-06-02 10:01 | Outpatient (CLI) | payer MEDICARE, SELFPAY ==
[2022-06-02 11:02] LABS: Blood Urea Nitrogen 29 mg/dl (9-20); Calcium 8.5 mg/dl (8.4-10.2); Carbon Dioxide 23 mmol/L (22.0-30.0); Chloride 111 mmol/L (98-107); Estimated Glomerular Filt Rate 37 ml/min (>60); GFR (African American) 44 ML/MIN (>60); Glucose 105 mg/dl (74-100); Sodium 141 mmol/L (136-145)
[2022-06-02 11:13] LABS: Anion Gap 12.3 mEq/L (5-15); Potassium 5.3 mmoL/L (3.5-5.1)
== END ==
PROVIDERS: PCP Family Medicine; Visit Provider Physician Assistant
DX: E11.9 Type 2 diabetes mellitus without complications (principal); Z79.84 Long term (current) use of oral hypoglycemic drugs
CPT/HCPCS: 36415; 80048

== ENCOUNTER → 2022-06-10 14:00 | Outpatient (CLI) | payer MEDICARE, SELFPAY ==
--- NOTE | 2022-06-10 14:28 | CT_ITS ---
FINAL REPORT CLINICAL HISTORY: URINARY RETENTION/RENAL CANCER FINDINGS: Axial CT images of the abdomen and pelvis were obtained without intravenous contrast. Coronal reformatted images were also obtained.This study was performed with techniques to keep radiation doses as low as reasonably achievable (ALARA). Individualized dose reduction techniques using automated exposure control or adjustment of mA and/or kV according to the patient''s size were employed. Lack of IV contrast decreases sensitivity of the exam. Abdomen: There is mild scarring at the lung bases. The patient is status post cholecystectomy. There is mild biliary dilatation likely related to post cholecystectomy change. The liver, spleen and pancreas have an unremarkable, unenhanced appearance. There are postoperative changes in the anterior left kidney with adjacent stranding consistent with postoperative change. There is an 11 mm focus in the posterior left kidney, nonspecific, favored to represent a cyst. There is no adenopathy. There are mild vascular calcifications. Pelvis: The appendix is normal. There is a Mckeon catheter in the urinary bladder. The prostate is enlarged. There is a small umbilical hernia containing fat. Osseous structures are unremarkable. IMPRESSION: Postoperative changes in the anterior left kidney. Stranding adjacent to the kidney is favored to be postoperative. Follow-up CT with contrast or MRI may be helpful. Reviewed, Interpreted and Dictated by Didier Rosales III, MD Transcribed by Conchita Downing Authenticated and [facility]
== END ==
PROVIDERS: PCP Family Medicine; Visit Provider Urology
DX: N40.1 Benign prostatic hyperplasia with lower urinary tract symptoms (principal); R33.8 Other retention of urine; R33.9 Retention of urine, unspecified; Z85.528 Personal history of other malignant neoplasm of kidney; Z01.812 Encounter for preprocedural laboratory examination; Z20.822 Contact with and (suspected) exposure to COVID-19
CPT/HCPCS: 74176; C9803; U0003; U0005

== ENCOUNTER 2022-06-13 08:19 | Day surgery (SDC) | payer MEDICARE, SELFPAY ==
[2022-06-13 08:33] VITALS: BP 129/68; PULSE 67; RESP 18; TEMP 36.3; O2SAT 96
[2022-06-13 08:47] LABS: POC Glucose,Bedside 145 (70-110)
[2022-06-13 08:52] VITALS: BMI 31.5
[2022-06-13 09:35] VITALS: BP 129/69; PULSE 61; RESP 18; TEMP 36.7; O2SAT 98
[2022-06-13 10:16] VITALS: BP 129/69; PULSE 61; RESP 18; O2SAT 98
--- NOTE | 2022-06-13 10:32 | EXP.OP.NOTE ---
Date of procedure: 06/13/22 Pre-op Diagnosis:: Urinary retention Post-op Diagnosis:: BPH with prostate obstruction Procedure performed:: Cystoscopy Surgeon:: David Sherman MD Anesthesia: local Estimated blood loss (mL): 0 Clinical Note:: 81-year-old white male with lower urinary tract symptoms found to have a postvoid residual of 1600 cc in the office recently. Mckeon catheter was placed at that time and he returns today for cystoscopic evaluation. CT scan performed in the interim shows a very large prostate but no evidence of any hydroureteronephrosis. Operative findings:: Cystoscopy revealed a large prostate with trilobar hyperplasia and large median lobe. There was moderate to severe trabeculation in the bladder. There was some bullous edema along the floor the bladder consistent with his recent Mckeon catheter. Operative note:: Patient taken to the cystoscopy suite after informed consent was obtained. Mckeon catheter was removed. On the stretcher he was placed in the supine position and prepped draped in the standard surgical fashion. 2% lidocaine placed into the urethra and the urethra clamped for 5 minutes. After 5 minutes the clamp removed and the flexible cystoscope introduced into the urethral meatus. Passed to the prostatic urethra which showed trilobar hyperplasia. The bladder was entered and examined in a systematic fashion. There was bullous edema along the floor the bladder consistent with his recent Mckeon catheter placement. There was a moderate to severe trabeculation along the base of the bladder. The ureteral orifices were very close to the median lobe and clear efflux of urine was noted. The scope was retroflexed showing large median lobe as well as some anterior tissue protruding into the bladder. Scope pulled back to the urethra which again showed trilobar hyperplasia. Scope removed patient tolerated the procedure well no complications. We discussed the findings with the patient and his in the recovery room. Transurethral resection of the prostate was recommended. He has had previous surgery at and he will consider his options and let me know how he wishes to proceed. Condition: stable Disposition: same day Specimens:: None Complications:: None
== END 2022-06-13 10:02 | disposition home or self-care (01) ==
PROVIDERS: PCP Family Medicine; Visit Provider Urology
DX: N40.1 Benign prostatic hyperplasia with lower urinary tract symptoms (principal); R33.8 Other retention of urine; Z79.899 Other long term (current) drug therapy
CPT/HCPCS: 52000; 82962

== ENCOUNTER 2023-02-07 08:17 | Day surgery (SDC) | payer MEDICARE, SELFPAY ==
[2023-02-07 08:25] VITALS: BMI 31.5
[2023-02-07 08:48] VITALS: BP 125/70; PULSE 60; PULSE 62; RESP 16; O2SAT 97
[2023-02-07 09:26] LABS: Basophils % 0.5 % (0.1-2.0); Eosinophils # 0.2 K/mm3 (0.0-0.4); Eosinophils % 3.7 % (0.1-12.0); Hematocrit 24.8 % (42.0-52.0); Hemoglobin 7.5 g/dL (14.1-18.0); Lymphocytes # 1.5 K/mm3 (0.7-4.5); Lymphocytes % 26.1 % (10-50); Mean Corpuscular HGB Conc 30.4 g/dL (31.8-35.4); Mean Corpuscular Hemoglobin 26.1 pg (27.0-31.2); Mean Platelet Volume 8.2 fl (7.4-10.4); Monocytes # 0.4 K/mm3 (0.1-1.0); Monocytes % 6.7 % (1.7-9.3); Neutrophils # 3.5 K/mm3 (1.8-7.8); Platelet Count 243 K/mm3 (142-424); Red Blood Count 2.89 M/mm3 (4.60-6.20); Red Cell Distribution Width 16.2 % (11.5-17.5); White Blood Count 5.6 K/mm3 (4.8-10.8)
[2023-02-07 09:27] LABS: Chloride 101 mmol/L (98-107); Potassium 4.5 mmoL/L (3.5-5.1); Sodium 137 mmol/L (136-145)
[2023-02-07 09:30] LABS: Anion Gap 18.5 mEq/L (5-15); Blood Urea Nitrogen 35 mg/dl (9-20); Calcium 8.4 mg/dl (8.4-10.2); Carbon Dioxide 22 mmol/L (22.0-30.0); Creatinine Clearance Estimated 46 mL/min (50-200); Estimated Glomerular Filt Rate 36 ml/min (>60); GFR (African American) 44 ML/MIN (>60); Glucose 110 mg/dl (74-100)
--- NOTE | 2023-02-07 11:00 | SUR.PHASEII ---
Pt. hemoglobin 7.5. Procedure cancelled per Dr. Palacio. Pt. referral to hematology and nephrology, iron studies, and renal u/s with duplex ordered as outpatient. Discussed in length lab results and f/u information with family and patient, they deny any further questions at this time.
[2023-02-07 11:15] LABS: Iron 158 ug/dL (49-181)
[2023-02-07 11:24] LABS: Total Iron Binding Capacity 420 ug/dL (261-462)
[2023-02-07 11:52] LABS: Ferritin 8.28 ng/ml (17.9-464)
[2023-02-08 14:14] LABS: Erythropoietin 130.5 mIU/mL (2.6-18.5)
== END 2023-02-07 11:30 | disposition home or self-care (01) ==
PROVIDERS: PCP Family Medicine; Visit Provider Internal Medicine
DX: Z53.09 Procedure and treatment not carried out because of other contraindication (principal); I48.0 Paroxysmal atrial fibrillation; I25.10 Atherosclerotic heart disease of native coronary artery without angina pectoris; D64.9 Anemia, unspecified; I10 Essential (primary) hypertension
CPT/HCPCS: 80048; 82668; 82728; 83540; 83550; 85025

== ENCOUNTER → 2023-02-09 07:30 | Outpatient (CLI) | payer MEDICARE, SELFPAY ==
--- NOTE | 2023-02-09 07:30 | US_ITS ---
FINAL REPORT CLINICAL HISTORY: I10 - Essential (primary) hypertension FINDINGS: The right kidney measures 9.1 cm in length. It is normal in echogenicity. There is no hydronephrosis. The left kidney measures 11.5 cm in length. It is normal in echogenicity. There is no hydronephrosis. There is a small amount of Debbie nephric fluid bilaterally which is nonspecific. The spleen is borderline measuring 12.6 cm. IMPRESSION: Borderline splenomegaly. Small amount of perinephric fluid bilaterally, nonspecific. Reviewed, Interpreted and Dictated by Didier Rosales III, MD Transcribed by Medina Ray Authenticated and [facility]
--- NOTE | 2023-02-09 08:22 | CA_ITS ---
FINAL REPORT TECHNIQUE: Grayscale, color Doppler and duplex Doppler ultrasound of the kidneys, aorta and renal arteries was performed. Multiple velocities were measured. CLINICAL HISTORY: HTN,HX RENAL CANCER LT KIDNEY WITH RESECTION FINDINGS: Aorta velocity: 99.0 cm/sec Right kidney: 9.8 cm. No evidence of hydronephrosis or mass. Right intrarenal RI: 0.62 Right renal artery velocity: 82 cm/sec. Right RAR (Renal artery-Aortic Ratio): 0.83 Left Kidney: 12.2 cm. No evidence of hydronephrosis or mass. Left intrarenal RI: 0.88, borderline elevated Left renal artery velocity: 86 cm/sec. Left RAR (Renal Artery-Aortic Ratio): 0.87 IMPRESSION: No evidence of significant renal artery stenosis. CT angiogram or postcontrast MR angiogram would be more sensitive for evaluation of possible renal artery stenosis. Reviewed, Interpreted and Dictated by Didier Rosales III, MD Transcribed by Conchita Downing Authenticated and [facility]
== END ==
PROVIDERS: PCP Family Medicine; Visit Provider Internal Medicine
DX: I10 Essential (primary) hypertension (principal)
CPT/HCPCS: 76770; 93976

== ENCOUNTER 2023-02-15 09:00 | Outpatient (CLI) | payer MEDICARE, SELFPAY ==
[2023-02-15] VITALS (18 sets, daily range): BP systolic 82–114; BP diastolic 39–66; PULSE 60–66; RESP 18–20; TEMP 36.4–36.7; O2SAT 94–98; BMI 31.5
--- NOTE | 2023-02-15 10:30 | PC.NURSE ---
1030-pt here for blood transfusion of 2 units prbcs for hgb 7.5; pt states he has been lightheaded.
[2023-02-15 10:37] LABS: Hematocrit 26.2 % (42.0-52.0); Hemoglobin 7.5 g/dL (14.1-18.0)
[2023-02-15 11:35] LABS: Reticulocyte % (Auto) 4.2 % (0.9-3.2)
[2023-02-16 11:13] LABS: Haptoglobin 210 mg/dL (34-355)
== END 2023-02-15 16:51 | disposition home or self-care (01) ==
LOC: LAB 09:48 → INF 10:17
PROVIDERS: Physician Assistant; PCP Family Medicine; Visit Provider Internal Medicine
DX: R16.1 Splenomegaly, not elsewhere classified (principal); D64.9 Anemia, unspecified; I48.0 Paroxysmal atrial fibrillation
CPT/HCPCS: 36415; 36430; 83010; 85014; 85018; 85044; 86850; P9016

== ENCOUNTER → 2023-03-01 10:16 | Outpatient (CLI) | payer MEDICARE, SELFPAY | PROVIDERS: PCP Family Medicine; Visit Provider Physician Assistant | DX: D64.9 Anemia, unspecified (principal); E78.2 Mixed hyperlipidemia; I10 Essential (primary) hypertension; I48.0 Paroxysmal atrial fibrillation; R06.09 Other forms of dyspnea; R16.1 Splenomegaly, not elsewhere classified; R94.31 Abnormal electrocardiogram [ECG] [EKG]; Z95.0 Presence of cardiac pacemaker; R79.0 Abnormal level of blood mineral; R94.39 Abnormal result of other cardiovascular function study; Z85.528 Personal history of other malignant neoplasm of kidney | CPT/HCPCS: 36415; 86850; 93306 ==